=== PATIENT | female | born 1995 | race Hispanic/Latino ===

== ENCOUNTER 2021-07-08 18:48 | Emergency (ER) | payer SELFPAY ==
[2021-07-08 18:58] VITALS: BP 109/68
== END 2021-07-09 11:19 | disposition left against medical advice (07) ==
LOC: ED 18:48
DX: Z04.1 Encounter for examination and observation following transport accident (principal); Z53.21 Procedure and treatment not carried out due to patient leaving prior to being seen by health care provider

== ENCOUNTER 2021-12-09 15:20 | Emergency (ER) | payer SELFPAY ==
[2021-12-09 15:28] VITALS: BP 123/65
== END 2021-12-09 19:19 | disposition left against medical advice (07) ==
LOC: ED 15:20
DX: R21 Rash and other nonspecific skin eruption (principal); Z53.21 Procedure and treatment not carried out due to patient leaving prior to being seen by health care provider